=== PATIENT | male | born 1980 | race Caucasian/White ===

== ENCOUNTER 2024-11-26 12:26 | Outpatient (AMB) | payer OTHER, SELFPAY ==
--- NOTE | 2024-11-26 12:27 | A.OFFVIS_ITS ---
Vital Signs 11/26/24 12:29 Height 5 ft 5 in Weight 185 lb 3.013 oz BMI 30.8 BP 122/83 Blood Pressure Location Lt brachial Position Sitting Pulse 85 Intake Visit Reasons: Diarrhea, sibo Intake Note: Chris presents in the office as a new patient for diarrhea and SIBO. CC: diarrhea, gurgling in the stomach, stomach pains, urgency to have a BM. States that sometimes he has different BMs. He has had accidents and states he has seen a GI specialist before at [facility]. He states that they were not very helpful so wanted to find care elsewhere. 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 Referred by PCP for further evaluation of diarrhea/SIBO. Patient is accompanied by his . Pt presents with ongoing diarrhea and loose/watery stools, sometimes described as ?soft serve? in consistency, dating back to the period following COVID infection and an appendectomy several years ago. Bowel urgency and incontine nce/near accidents are noted, particularly in the morning hours, averaging 3?8 episodes/day, occasionally leading to lifestyle modification due to fear of accidents. Abdominal pain is variable, fluctuating between upper and lower quadrants, sometimes requiring pt to adjust seatbelt positioning; pain is described as intermittent, sometimes relieved following BM, but may linger until subsequent episode. Pt experienced minimal/partial improvement with loperamide (Imodium) TID, but no response to 03/2024 metronidazole Rx for presumed SIBO. Bloating, abdominal gurgling, and a single episode of nocturnal acid reflux are reported; no regular heartburn or regurgitation. Weight stable over past 5?8 years (185?190 lbs). Intermittent avoidance of certain foods (onions, apples) and trial of low-FODMAP diet without significant benefit. Appetite suppressed at times due to fear of triggering symptoms. Workup to date includes colonoscopy in 2021 through [facility] (showed diverticulosis, otherwise unremarkable, no polyps), two negative stool cultures/O&P (Apr 2024), and laboratory testing (CBC, CMP, LFTs, A1C all wnl except for low Vit D). Lifestyle modifications include partial elimination diets, but inconsistent food triggers. Notable anxiety/fear associated with symptom unpredictability, contributing to lifestyle restrictions (avoids walks/runs, social situations). No fhx of GI malignancy, IBD, or celiac; negative for regular blood in stool except isolated pre-appendectomy event. PMH includes chronic back pain under concurrent PT and as-needed methocarbamol/muscle relaxers. Patient denies: fever/chills, n/v, regurgitation,dysphasia, unintentional wt loss. Social hx: -ETOH use, Consumes 1?2 beers daily, occasional whiskey; denies dependency/withdrawal. -denies recreational drug use -non-smoker -Occupation: Works on [employer]; no specific GI hazard exposures identified. - Psychosocial: High anxiety related to bowel urgency/incontinence; avoids walks/runs and social situations due to fear of episodes. Family History: - No colon/stomach cancer or IBD/celiac in first-degree relatives - Father?remote history of twisted intestine w/ surgery - No known food allergies -denies personal hx of CA -denies significant cardiopulmonary history -tolerated anesthesia in the past without difficulty. 12/2023 labs -normal CMP, iron, CBC, Vitb12/folate, low vitamin D PFSH Medical History (Updated 11/27/24 @ 09:31 by Carol Ann Zepeda CNP) Prediabetes Colon cancer screening Epigastric abdominal pain Diarrhea Surgical History (Updated 11/26/24 @ 12:30 by FARIDA Ridley) Hx of colonoscopy Hx of appendectomy Social History Household Members: Family Alcohol intake: current Alcohol intake frequency: a few times a week Alcohol type: beer Patient Tobacco Use Status: Never used Tobacco Review of Systems Const Reports as per HPI ENT Reports as per HPI Card Reports as per HPI Resp Reports as per HPI GI Reports as per HPI Reports as per HPI Physical Exam Vital Signs: Last Vital Signs Pulse 85 11/26/24 12:29 BP 122/83 11/26/24 12:29 BMI result Body Mass Index 30.8 Const General: healthy appearing, no acute distress and well developed Nutritional Appearance: average body habitus Orientation/consciousness: patient oriented x3 HEENT Head: Yes normal to inspection, Yes normocephalic and Yes atraumatic Face and sinus: Yes normal facial exam Eyes General: appearance normal, both eyes and all related structures Neck Neck: Yes normal visual inspection Resp Effort & Inspection: normal respiratory effort, able to speak in complete sentences, no tracheal deviation and symmetric chest movement Cardio Jugular venous distension: no JVD Heart sounds: Murmur heart sound present GI Inspection: Yes normal to inspection, No distended and Yes obesity Palpation (GI): Soft to palpation, not firm, nontender and No hepatosplenomegaly present Auscultation: normal bowel sounds Rectal Exam - Male: Yes visual inspection normal and Yes decreased sphincter tone (mildly decrease ) Neuro General: patient oriented x3 Gait exam (Neuro): Normal gait present Psych Appearance: grossly normal Mental Status: mental status grossly normal Speech and movement: Normal speech and movement present Affect: normal affect Attitude: cooperative Thought process: Normal thought process present Thought content: Normal thought content present Insight: Good insight present (Psych) Judgement: Good judgement present (Psych) Assessment & Plan Assessment & Plan (1) Diarrhea: Code(s): R19.7 - Diarrhea, unspecified Category: Medical Qualifiers: Diarrhea type: unspecified type Qualified Code(s): R19.7 - Diarrhea, unspecified Plan: Chronic diarrhea with urgency/incontinence, evaluate for IBS vs food intolerance vs IBD Sx pattern and previous workup support possible functional and/or food-allergen basis; lack of alarm/red flag sx; non-contributory prior colonoscopy except diverticulosis; negative prior stool studies. - Additional Testing: - Repeat comprehensive stool studies: O&P, C. diff, WBC, fecal calprotectin (r/o IBD/infection/KSENIA) - Food allergy blood panel ([facility]): comprehensive foods including apple, onion, nuts, cow?s milk, wheat, others per profile - Celiac serologies - Abdominal/pelvic U/S (r/o gallbladder dz/other pathology) - Schedule updated colonoscopy for both surveillance/diagnostic purposes - Medication Management: - Continue loperamide (max total daily dose 16 mg; 4 mg initially, then 2 mg after each loose stool as needed) - Hold metronidazole unless new evidence of SIBO or infection arises - Continue fiber supplement as tolerated - Methocarbamol, Tylenol, Motrin?prn for musculoskeletal pain (monitor overall acetaminophen dose due to Tylenol/Tylenol PM use) - Lifestyle Recommendations: - Maintain/expand detailed food and symptom diary (focus on potential triggers: onions, apples, dairy, others) - Minimize/analyze high-risk foods until formal panel returns - Gradual increase in physical activity as tolerated, consider stress reduction techniques (CBT for functional bowel/visceral anxiety if interested) - Encourage ongoing dietary vigilance re: fiber, hydration, and careful avoidance of known triggers - Follow-Up: - Return f/u in 8 wks or sooner if test results require; earlier for worsening or red flag sx (blood in stool, weight loss, new severe pain) - Communication via portal for interim updates or urgent concerns - Colonoscopy scheduling and prep coordinated per protocol (2) Epigastric abdominal pain: Code(s): R10.13 - Epigastric pain Category: Medical Plan: Intermittent upper abdominal/epigastric pain, not classic for gallbladder but present in symptom profile; single episode of nocturnal reflux. Additional Testing: - Abdominal U/S to assess gallbladder and upper abdominal organs - Consider EGD if persistent/recurrent upper GI symptoms or abnormal findings on imaging/labs Medication Management: - No empiric acid suppression at this time; monitor for recurrent reflux or dyspepsia Lifestyle Recommendations: - Continue to avoid known triggers (onions, apples, high-fat foods) - Elevate head of bed if nocturnal reflux recurs Follow-Up: - Reassess after imaging and labs; escalate to EGD if indicated by ongoing/recurrent upper GI symptoms (3) Prediabetes: Code(s): R73.03 - Prediabetes Category: Medical Plan: A1c 5.5 based on reviewed labs presented by patient portal Isolated lab abnormality, no direct link to GI sx but relevant for long-term health. Additional Testing: None at this time unless new SX develop. Medication Management: None. Lifestyle Recommendations: - Encourage ongoing dietary modifications as outlined (low sugar/fried foods) - Maintain healthy weight, regular exercise Follow-Up: Continue annual A1C through PCP Plan Follow-up in 8 weeks or sooner as needed Time: I spent a total of 60 minutes on the date of encounter which includes: Preparing to see the patient (reviewed previous documentation, test results and medical history) Performing a medically appropriate exam and/or evaluation Ordering medications, tests, and procedures Documenting clinical information in the health record Orders: Orders C Reactive Protein 11/26/24 R19.7 - Diarrhea, unspecified US abdomen complete 11/26/24 R10.13 - Epigastric pain Calprotectin, Fecal 11/26/24 R19.7 - Diarrhea, unspecified Transglutaminase IgA 11/26/24 R19.7 - Diarrhea, unspecified Referrals GI Procedure Notification R19.7 - Diarrhea, unspecified, Z12.11 - Encounter for screening for malignant neoplasm of colon Medications: New bisacodyl Take per colonoscopy instructions 20 mg (4 x 5 mg) PO ONCE 4 tabs 0RF polyethylene glycol 3350 (Miralax) per colonoscopy prep instructions 238 grams PO ONCE 238 grams 0RF Coding Level of Care Code New Pt New Pt Level 5 (27578) Patient Type New Diagnoses Diarrhea, unspecified type R19.7 Diarrhea type: unspecified type Epigastric abdominal pain R10.13 Prediabetes R73.03
[2024-11-26 12:29] VITALS: BP 122/83; PULSE 85; BMI 30.8
--- OUTSIDE RECORDS SUMMARY | 2024-11-26 14:59 | XMS_ITS | Clinical Summary ---
Author Organization [facility] Address [address] [place] [address] Care Team Providers Care Vector Control Assistant Name Role Phone Unavailable Primary Care Provider Unavailabl e Social History Tobacco Use Types Packs/Day Years Used Date Smoking Tobacco: Never Assessed Sex and Gender Information Value Date Recorded Sex Assigned at Not on file Legal Sex Male 2:19 PM EDT Gender Identity Not on file Sexual Orientation Not on file Plan of Treatment Health Maintenance Due Date Last Done Comments Hepatitis C Virus Screening 1980 HIV Screening 1993 DTaP/Tdap/Td Vaccines (1 - Tdap) 10/22/1999 Hepatitis B Vaccines (1 of 3 - 19+ 3-dose series) 10/22/1999 COVID-19 Vaccine ( - 2023-2 5 season) 2024 HPV Vaccines (No Doses Required) Completed Pneumococcal Vaccine: Pediat aletha (0-5 Years) and At-Risk Patients (6 to 49 Years) Aged Out No longer eligible b ased on patient's age to complete this topic
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
== END 2024-11-26 13:30 | disposition home or self-care (01) ==
PROVIDERS: PCP Internal Medicine; Visit Provider Nurse Practitioner Family
DX: R19.7 Diarrhea, unspecified (principal); R10.13 Epigastric pain; R73.03 Prediabetes
CPT/HCPCS: 99205

== ENCOUNTER 2024-11-26 12:26 | Outpatient (REF) | payer OTHER, SELFPAY | END 2024-11-26 12:27 | disposition home or self-care (01) | LOC: HO.LAB 12:26 | PROVIDERS: PCP Internal Medicine; Visit Provider Nurse Practitioner Family | DX: R19.7 Diarrhea, unspecified (principal); R10.13 Epigastric pain; R73.03 Prediabetes; Z12.11 Encounter for screening for malignant neoplasm of colon | CPT/HCPCS: 36415; 86003; 86140; 86364; 99202 ==

== ENCOUNTER 2025-01-27 11:04 | Day surgery (SDC) | payer OTHER, SELFPAY ==
--- OUTSIDE RECORDS SUMMARY | 2024-12-30 01:03 | XMS_ITS | Clinical Summary ---
Author Organization [facility] Address [address] [address] Phone Care Team Providers Care Hand Bootmaker Name Role Phone Vini Carlos Primary Care Provider [phone] Allergies No known active allergies Medications loperamide (IMODIUM) 2 mg capsule TAKE 1 CAPSULE BY MOUTH THREE TIMES A DAY NEEDED FOR 10 DAYS 05/10/2024 Active Active Problems Problem Noted Date Diagnosed Date Class 1 obesity 06/07/2024 Lumbar herniated disc 06/07/2024 Immunizations No known immunizations Social History Tobacco Use Types Packs/Day Years Used Date Smoking Tobacco: Never Smokeless Tobacco: Never Tobacco Cessation:Counseling Given: Not Answered Education Answer Date Recorded Are you interested in more education? Not on nohemy e 02/12/2023 Are you concerned about learning? Not on file 02/12/2023 No 02/12/2023 No 02/12/2023 Digital Access Answer Date Recorded No 02/12/2023 No 02/12/2023 Reliable internet access at home? Not on file 02/12/2023 Device with a working camera? Not on file Sex and Gender Information Value Date Recorded Sex Assigned at Not on file Legal Sex Male 2:28 PM EST Gender Identity Not on file Sexual Orientation Not on file Last Filed Vital Signs Vital Sign Reading Time Taken Comments Blood Pressure 120/80 06/07/2024 9:45 AM EDT Pulse 65 06/07/2024 9:45 AM EDT Temperature 36.9 C (98.4 F) 06/07/2024 9:45 AM EDT Respiratory Rate 16 06/07/2024 9:45 AM EDT Oxygen Saturation 98% 06/07/2024 9:45 AM EDT Inhaled Oxygen Concentration - - Weight 86.2 kg (190 lb) 02/26/2023 4:52 PM EST Height 165.1 cm (5' 5 ) 02/26/2023 4:52 PM EST Body Mass Index 31.62 02/26/2023 4:52 PM EST Plan of Treatment Health Maintenance Due Date Last Done Comments LIPID PANEL 1980 DEPRESSION SCREENING 1992 HEPATITIS C SCREENING 1998 HIV ONE-TIME SCREENING (18-6 5 YEARS) 1998 SCREENING FOR DIABETES 10/22/2015 INFLUENZA VACCINE (#1) 2024 9, 12/12/2013 COVID-19 VACCINE (2024-2 6 season) 2024 02/20/2021, 06/16/2020, 05/12/2020 Adult Td,Tdap Booster 03/19/2030 03/19/2020 , 01/14/2010 SMOKING STATUS SCREENING (On ce After 26 Yrs) Completed 06/07/2024 HEPATITIS A VACCINES Aged Out No long er eligible based on patient's age to complete this topic HIB VACCINES Aged Out No longer eligi ble based on patient's age to complete this topic IPV VACCINES Aged Out No longer eligi ble based on patient's age to complete this topic MENINGOCOCCAL VACCINES (ACWY) Aged Out No longer eligible based on patient's age to complete this topic MENINGOCOCCAL VACCINES (B) Aged Out N o longer eligible based on patient's age to complete this topic PNEUMOCOCCAL VACCINES (0-49 years) Aged Out No longer eligible b ased on patient's age to complete this topic Medical Devices Not on file Insurance [facility] [address] [address] [place] [address] [place] [address] [place] [address] [facility] [employer] Care Teams Hand Bootmaker Relationship Specialty Start Date End Date Vini Carlos DO [address] [place] [id number] [email or web address] PCP - General Internal Medicine 06/07/24 Additional Source Comments The information contained in this document represents components of the legal health record. It is not the complete legal health record.[facility]
--- OUTSIDE RECORDS SUMMARY | 2024-12-30 01:03 | XMS_ITS | Clinical Summary ---
Author Organization [facility] Address [address] [place] [address] Care Team Providers Care Extrusion Utility Worker Name Role Phone Unavailable Primary Care Provider [...]
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
--- NOTE | 2025-01-24 14:09 | HO.ANESPROP2 ---
Documented by User: Coleen Coelho NP 01/24/25 14:09 HPI - Anesthesia Eval Consult details Narrative: 44 yr old male for colonoscopy PMFSH Active Problems Active Problems: All Active Problems Prediabetes (Acute) Colon cancer screening (Acute) Epigastric abdominal pain (Acute) Diarrhea (Acute) Past Medical History Medical History Prediabetes Colon cancer screening Epigastric abdominal pain Diarrhea Surgical History Surgical History Hx of colonoscopy Hx of appendectomy Social History Social History Household Members: Family Alcohol intake: current Alcohol intake frequency: a few times a week Alcohol type: beer Patient Tobacco Use Status: Never used Tobacco Meds Allergies Allergy/AdvReac Type Severity Reaction Status Date / Time benzoin AdvReac Intermediate Rash Verified 11/26/24 12:52 Home Medications ?Medication ?Instructions ?Recorded ?Confirmed ?Last Taken ?Type acetaminophen 500 mg tablet 1,000 mg PO Q6H PRN Pain 11/26/24 01/25/25 Unknown History (Tylenol Extra Strength) cholestyramine (with sugar) 4 gram ea PO 11/26/24 11/26/24 Unknown History powder for susp in a packet diphenhydramine 25 1 tab PO BEDTIME PRN Insomnia 11/26/24 01/25/25 Unknown History mg-acetaminophen 500 mg tablet (Tylenol PM Extra Strength) ibuprofen 800 mg tablet 800 mg PO Q8H PRN low back pain 11/26/24 01/25/25 Unknown History loperamide 2 mg capsule 2 mg PO TID PRN Diarrhea 11/26/24 01/25/25 Unknown History methocarbamol 750 mg tablet 750 mg PO DAILY PRN low back pain 11/26/24 01/25/25 Unknown History multivitamin 1 tab PO DAILY 11/26/24 01/25/25 Unknown History Documented by User: Tatum Vieira MD 01/27/25 10:39 [facility] Past Medical History Medical History Prediabetes Colon cancer screening Epigastric abdominal pain Diarrhea Family History Family history of problems with anesthesia: No Surgical History Surgical History Hx of colonoscopy Hx of appendectomy History of Problems with Anesthesia: No Social History Social History Household Members: Family Alcohol intake: current Alcohol intake frequency: a few times a week Alcohol type: beer Patient Tobacco Use Status: Never used Tobacco Meds Allergies Allergy/AdvReac Type Severity Reaction Status Date / Time benzoin AdvReac Intermediate Rash Verified 11/26/24 12:52 Home Medications ?Medication ?Instructions ?Recorded ?Confirmed ?Last Taken ?Type acetaminophen 500 mg tablet 1,000 mg PO Q6H PRN Pain 11/26/24 01/25/25 Unknown History (Tylenol Extra Strength) cholestyramine (with sugar) 4 gram ea PO 11/26/24 11/26/24 Unknown History powder for susp in a packet diphenhydramine 25 1 tab PO BEDTIME PRN Insomnia 11/26/24 01/25/25 Unknown History mg-acetaminophen 500 mg tablet (Tylenol PM Extra Strength) ibuprofen 800 mg tablet 800 mg PO Q8H PRN low back pain 11/26/24 01/25/25 Unknown History loperamide 2 mg capsule 2 mg PO TID PRN Diarrhea 11/26/24 01/25/25 Unknown History methocarbamol 750 mg tablet 750 mg PO DAILY PRN low back pain 11/26/24 01/25/25 Unknown History multivitamin 1 tab PO DAILY 11/26/24 01/25/25 Unknown History Exam Airway Mallampati Class: II TM Dist: >3cm Neck ROM: Full Heart: rrr Lungs: cta Assessment and Plan Assessment Anesthesia Assessment: Anesthesia Plan Discussed and Chart Reviewed Final Anesthetic Review Family History of Problems with Anesthesia: No History of Problems with Anesthesia: No NPO: Yes ASA Class: II Final Preanesthetic Review: No Changes in Pt Med Stat, Meds/Allgs Chart Reviewed, Consent Obtained/Reviewed and Anes Risks/Benef Reviewed Patient Risk: Low Procedure Risk: Low Anesthetic Plan Anesthetic Plan: MAC: and Agree w/ Assess. and Plan Disposition: Standard PACU
[2025-01-25 12:14] VITALS: BMI 30.8
[2025-01-27 11:16] VITALS: BMI 30.2
[2025-01-27 11:22] VITALS: BP 116/82; PULSE 68; RESP 16; TEMP 36.6; O2SAT 95
--- NOTE | 2025-01-27 11:31 | MHC.SHP ---
Pre-Procedural Eval Section A - 24 Hr Update-Section A only Date of Service: 01/27/25 Section B - Complete if H&P > 30 days Chief Complaint: diarrhea Details of Present Illness: Prediabetes Colon cancer screening Epigastric abdominal pain Diarrhea Surgical History (Updated 11/26/24 @ 12:30 by FARIDA Ridley) Hx of colonoscopy Hx of appendectomy Present Medications: see Short Stay Collaborative assessment Allergies: Allergies Allergy/AdvReac Type Severity Reaction Status Date / Time benzoin AdvReac Intermediate Rash Verified 11/26/24 12:52 Review of Systems Review of Systems Comment: Ten point ROS negative Exam Exam Comment: Gen appear: No acute distress HEENT: no icterus Chest: No overt resp distress Abd: soft, nontender, nondistended Psych: Stable affect, answering questions appropriately Neuro: A/Ox3 noted to move all extremities spontaneously Ext: no peripheral edema Plan Diagnosis/Plan: Unchanged I have reviewed the history and physical and performed a pertinent physical examination on my patient. No changes have occurred unless specified. Time Spent With Patient Time: Total time managing care of this patient today ____ minutes.
[2025-01-27] MEDS: Lactated Ringers 1,000 ML 100 ML IVCONT (11:33)
[2025-01-27 12:08] VITALS: BP 105/67; PULSE 90; RESP 12; TEMP 36.4; O2SAT 97
--- NOTE | 2025-01-27 12:11 | P.OPN-COLO_ITS ---
Colonoscopy Operative Note Operative Note Date of Service: 01/27/25 Narrative: Procedure: Colonoscopy Indication: Chronic diarrhea Endoscopist: Caitie Rodgers MD Anesthesia Provider: Oneil Yoder CRNA Anesthesia type: MAC Instrument: Olympus [id number]-H190L Consent: Indication, risks vs benefits, and alternatives were discussed with the patient who gave written informed consent to proceed. EKG, pulse, pulse oximetry and blood pressure were monitored throughout the procedure. Please see anesthesia flowsheet. Procedure: The patient was brought to the procedure room and placed in the left lateral decubitus position. IV medications were administered by the anesthesia provider in attendance. A digital rectal exam was performed which was normal. A distal attachment cap was affixed to the tip of the colonoscope which was then inserted through the anus and advanced through the colon to the cecum at 75 cm,and terminal ileum. Appendiceal orifice and ileocecal valve were identified. Mucosa was carefully examined under high definition white light as the instrument was slowly withdrawn in a retrograde panoramic fashion. Retroflexion was performed in rectum. The procedure was not difficult. There were no immediate obvious complications. The quality of the prep was BBPS: 3+3+3 = adequate Withdrawal time 10 minutes. Limitations: No limitations. Findings: Mucosa: Normal to cecum and terminal ileum. Jumbo forceps biopsies were taken from R and L side of the colon to r/o microscopic colitis. Protruding lesions: * 2 sessile polyps of size 3-5 mm in sigmoid colon. Jumbo forceps polypectomy was performed. The polyps were completely removed and retrieved. * Medium internal hemorrhoids without stigmata of recent bleeding. Impression: 1. Normal colon and terminal ileum mucosa (biopsy) 2. Total of 2 polyps removed 3. Internal hemorrhoids Recommendations: - Follow path results. - Repeat colonoscopy in 7-10 years if polyps are adenomas.
[2025-01-27 12:21] VITALS: BP 106/74; PULSE 79; RESP 12; TEMP 36.4; O2SAT 97
== END 2025-01-27 12:48 | disposition home or self-care (01) ==
PROVIDERS: PCP Internal Medicine; Visit Provider Internal Medicine
PROC: 0DJD8ZZ Inspection of Lower Intestinal Tract, Via Natural or Artificial Opening Endoscopic (ICD-10-PCS; CPT 45378; principal; 2025-01-27 12:40)
DX: R19.7 Diarrhea, unspecified (principal); R10.13 Epigastric pain; K64.8 Other hemorrhoids; K63.5 Polyp of colon
CPT/HCPCS: 45380; 88305; J2003; J2704

== ENCOUNTER → 2025-01-27 11:04 | Outpatient (BNV) | payer OTHER, SELFPAY | PROVIDERS: PCP Internal Medicine; Visit Provider Internal Medicine | DX: K52.9 Noninfective gastroenteritis and colitis, unspecified (principal); K63.5 Polyp of colon; K64.8 Other hemorrhoids | CPT/HCPCS: 45380 ==